=== PATIENT | male | born 1965 | race Caucasian/White ===

== ENCOUNTER 2017-12-06 15:37 | Emergency (ER) | payer MEDICAID ==
[~2017-12-06] VITALS: Ht 170.2 cm; Wt 75.0 kg
[~2017-12-06 15:37] MED LIST: ATEN-169 PO; CEPH-357 PO; ENAL20TA75 PO; HYDR-3965 PO; HYDR-569 PO; HYDR1TAB PO; MORPHINE; VAL5T PO; VERA240T PO
[2017-12-06] MEDS ORDERED: normal saline 1000ML IV soln IVB ONE (15:55)
[2017-12-06] MEDS ORDERED: MORPHINE 2MG in 2ml NS syringe IV PRN (16:05)
[2017-12-06 16:20] LABS: BASOPHILS # (AUTO) 0.1 X10'3 (0-0.2); BASOPHILS % (AUTO) 0.7 % (0-1); EOSINOPHILS # (AUTO) 0.6 X10'3 (0-0.9); EOSINOPHILS % (AUTO) 5.9 % (0-6); HEMATOCRIT 45.1 % (42.0-52.0); HEMOGLOBIN 15.9 g/dl (14.0-17.9); LYMPHOCYTES # (AUTO) 2.6 X10'3 (1.1-4.8); LYMPHOCYTES % (AUTO) 27.8 % (21-51); MEAN CORPUSCULAR HEMOGLOBIN 32.5 PG (27.0-31.0); MEAN CORPUSCULAR HGB CONC 35.2 % (33.0-36.5); MEAN CORPUSCULAR VOLUME 92.5 FL (78-98); MEAN PLATELET VOLUME 9.3 FL (7.4-10.4); MONOCYTES # (AUTO) 0.8 X10'3 (0-0.9); MONOCYTES % (AUTO) 8.1 % (2-12); NEUTROPHILS # (AUTO) 5.4 X10'3 (1.8-7.7); NEUTROPHILS % (AUTO) 57.5 % (42-75); PLATELET COUNT 203 X10'3 (140-440); RED BLOOD COUNT 4.87 X10'6 (4.70-6.10); RED CELL DISTRIBUTION WIDTH 12.1 % (11.5-14.5); WHITE BLOOD COUNT 9.4 X10'3 (4.5-11.0)
[2017-12-06 16:34] LABS: ALANINE AMINOTRANSFERASE 58 U/L (12-78); ALBUMIN 3.6 G/DL (3.4-5.0); ALBUMIN/GLOBULIN RATIO 0.9 (1.1-1.5); ALKALINE PHOSPHATASE 64 IU/L (46-116); ANION GAP 11 (8-16); ASPARTATE AMINO TRANSFERASE 39 U/L (10-37); BILIRUBIN,TOTAL 0.4 MG/DL (0.1-1.0); BLOOD UREA NITROGEN 24 MG/DL (7-18); CALCIUM 9.3 MG/DL (8.5-10.1); CHLORIDE 104 MMOL/L (99-107); GLUCOSE 141 MG/DL (70-104); POTASSIUM 3.6 MMOL/L (3.5-5.1); SODIUM 139 MMOL/L (135-145); TOTAL CARBON DIOXIDE 24.4 MMOL/L (24-32); TOTAL PROTEIN 7.8 G/DL (6.4-8.2); eGFR 63 ML/MIN
[2017-12-06] MEDS ORDERED: morphine 4 MG/ML inj SYRINge IV ONE (17:05)
[2017-12-06 17:42] VITALS: BP 154/96
== END 2017-12-06 17:45 ==
LOC: EEVIPCON 15:38 → ER 15:38
DX: K40.90 Unilateral inguinal hernia, without obstruction or gangrene, not specified as recurrent (principal); I10 Essential (primary) hypertension; G89.29 Other chronic pain; F15.10 Other stimulant abuse, uncomplicated; Z98.890 Other specified postprocedural states; Z79.899 Other long term (current) drug therapy; Z88.6 Allergy status to analgesic agent; Z56.0 Unemployment, unspecified; Z59.0 Homelessness; Z60.2 Problems related to living alone
CPT/HCPCS: 36415; 74176; 80053; 83605; 85025; 96374; 96376; 99285; J2270; J2274; J7030

== ENCOUNTER 2018-11-19 05:45 | Emergency (ER) | payer MEDICAID ==
[~2018-11-19] VITALS: Ht 170.2 cm; Wt 79.0 kg
[~2018-11-19 05:45] MED LIST changes: +HYDR-4383 PO; -HYDR-569 PO
[2018-11-19 05:47] VITALS: BP 178/120
[2018-11-19 06:27] LABS: BASOPHILS # (AUTO) 0.1 X10'3 (0-0.2); BASOPHILS % (AUTO) 0.8 % (0-1); EOSINOPHILS # (AUTO) 0.8 X10'3 (0-0.9); EOSINOPHILS % (AUTO) 6.9 % (0-6); HEMATOCRIT 40.6 % (42.0-52.0); HEMOGLOBIN 13.9 g/dl (14.0-17.9); LYMPHOCYTES # (AUTO) 3.6 X10'3 (1.1-4.8); LYMPHOCYTES % (AUTO) 31.4 % (21-51); MEAN CORPUSCULAR HEMOGLOBIN 31.4 PG (27.0-31.0); MEAN CORPUSCULAR HGB CONC 34.1 g/dL (33.0-36.5); MEAN CORPUSCULAR VOLUME 91.9 FL (78-98); MEAN PLATELET VOLUME 8.8 FL (7.4-10.4); MONOCYTES # (AUTO) 1.1 X10'3 (0-0.9); MONOCYTES % (AUTO) 9.9 % (2-12); NEUTROPHILS # (AUTO) 5.8 X10'3 (1.8-7.7); PLATELET COUNT 176 X10'3 (140-440); RED BLOOD COUNT 4.42 X10'6 (4.70-6.10); RED CELL DISTRIBUTION WIDTH 12.7 % (11.5-14.5); WHITE BLOOD COUNT 11.5 X10'3 (4.5-11.0)
[2018-11-19 06:40] LABS: ALANINE AMINOTRANSFERASE 107 U/L (12-78); ALBUMIN 3.5 G/DL (3.4-5.0); ALBUMIN/GLOBULIN RATIO 0.8 (1.1-1.5); ALKALINE PHOSPHATASE 101 IU/L (46-116); ANION GAP 14 (8-16); ASPARTATE AMINO TRANSFERASE 86 U/L (10-37); BILIRUBIN,TOTAL 0.6 MG/DL (0.1-1.0); BLOOD UREA NITROGEN 11 MG/DL (7-18); BUN/CREATININE RATIO 12.5 (5.4-32.0); CALCIUM 8.7 MG/DL (8.5-10.1); CHLORIDE 105 MMOL/L (99-107); CREATININE 0.88 MG/DL (0.60-1.10); GLUCOSE 114 MG/DL (70-104); POTASSIUM 3.8 MMOL/L (3.5-5.1); SODIUM 139 MMOL/L (135-145); TOTAL CARBON DIOXIDE 20.3 MMOL/L (24-32); TOTAL PROTEIN 7.9 G/DL (6.4-8.2); eGFR 90 ML/MIN
[2018-11-19 06:44] LABS: PROTHROMBIN TIME 10.2 SECONDS (9.0-12.0)
== END 2018-11-19 09:30 | disposition left against medical advice (07) ==
LOC: ER 05:45
DX: R10.9 Unspecified abdominal pain (principal); R11.0 Nausea; Z53.21 Procedure and treatment not carried out due to patient leaving prior to being seen by health care provider; Z88.6 Allergy status to analgesic agent; Z88.8 Allergy status to other drugs, medicaments and biological substances; Z79.899 Other long term (current) drug therapy
CPT/HCPCS: 36415; 80053; 85025; 85610

== ENCOUNTER 2022-02-10 08:11 | Emergency (ER) | payer MEDICAID ==
[~2022-02-10] VITALS: Ht 170.2 cm; Wt 84.1 kg
[~2022-02-10 08:11] MED LIST changes: +DIAZ5TAB22 PO; -VAL5T PO
[2022-02-10 09:08] LABS: BASOPHILS # (AUTO) 0.1 X10'3 (0-0.2); BASOPHILS % (AUTO) 0.6 % (0-1); EOSINOPHILS # (AUTO) 0.1 X10'3 (0-0.9); EOSINOPHILS % (AUTO) 0.7 % (0-6); HEMATOCRIT 44.3 % (42.0-52.0); HEMOGLOBIN 15.4 g/dl (14.0-17.9); LYMPHOCYTES % (AUTO) 9.8 % (21-51); MEAN CORPUSCULAR HEMOGLOBIN 32.6 PG (27.0-31.0); MEAN CORPUSCULAR HGB CONC 34.7 g/dL (33.0-36.5); MEAN CORPUSCULAR VOLUME 93.9 FL (78-98); MEAN PLATELET VOLUME 8.6 FL (7.4-10.4); MONOCYTES # (AUTO) 1.3 X10'3 (0-0.9); MONOCYTES % (AUTO) 12.6 % (2-12); NEUTROPHILS # (AUTO) 7.9 X10'3 (1.8-7.7); NEUTROPHILS % (AUTO) 76.3 % (42-75); PLATELET COUNT 205 X10'3 (140-440); RED BLOOD COUNT 4.71 X10'6 (4.70-6.10); RED CELL DISTRIBUTION WIDTH 14.4 % (11.5-14.5); WHITE BLOOD COUNT 10.3 X10'3 (4.5-11.0)
[2022-02-10 09:21] LABS: ALANINE AMINOTRANSFERASE 37 U/L (12-78); ALBUMIN 3.5 G/DL (3.4-5.0); ALBUMIN/GLOBULIN RATIO 0.8 (1.1-1.5); ALKALINE PHOSPHATASE 112 IU/L (46-116); ANION GAP 9 (8-16); ASPARTATE AMINO TRANSFERASE 38 U/L (10-37); BILIRUBIN,TOTAL 1.1 MG/DL (0.1-1.0); BLOOD UREA NITROGEN 14 MG/DL (7-18); BUN/CREATININE RATIO 9.3 (5.4-32.0); CALCIUM 8.9 MG/DL (8.5-10.1); CHLORIDE 103 MMOL/L (99-107); GLUCOSE 138 MG/DL (70-104); POTASSIUM 3.3 MMOL/L (3.5-5.1); SODIUM 137 MMOL/L (135-145); TOTAL PROTEIN 7.8 G/DL (6.4-8.2); eGFR 48 ML/MIN
[2022-02-10] MEDS ORDERED: predniSONE 20 mg tablet PO ONE (10:45)
[2022-02-10] MEDS ORDERED: dexamethasone 4mg tablet PO ONE (11:35)
[2022-02-10] MEDS ORDERED: AZIT-31 PO (11:40)
[2022-02-10] MEDS ORDERED: ALBU18HF2 INH (11:40)
[2022-02-10] MEDS ORDERED: BUDE10.26 INH (11:40)
[2022-02-10] MEDS ORDERED: DEXA4TAB67 PO (11:40)
[2022-02-10 11:49] VITALS: BP 146/72
== END 2022-02-10 11:51 | disposition home or self-care (01) ==
LOC: ER 08:12
DX: U07.1 COVID-19 (principal); I10 Essential (primary) hypertension; G89.29 Other chronic pain; F17.200 Nicotine dependence, unspecified, uncomplicated; F10.10 Alcohol abuse, uncomplicated; F15.90 Other stimulant use, unspecified, uncomplicated; Z60.2 Problems related to living alone; Z56.0 Unemployment, unspecified; Z86.19 Personal history of other infectious and parasitic diseases; Z59.00 Homelessness unspecified; Z98.890 Other specified postprocedural states; Z88.6 Allergy status to analgesic agent; Z79.899 Other long term (current) drug therapy; Y90.9 Presence of alcohol in blood, level not specified
CPT/HCPCS: 36415; 71045; 80053; 83605; 83880; 85025; 87040; 87502; 87503; 87635; 99284; C9803; J7512

== ENCOUNTER 2022-03-04 07:22 | Emergency (ER) | payer MEDICAID ==
[~2022-03-04] VITALS: Ht 170.2 cm; Wt 81.8 kg
[~2022-03-04 07:22] MED LIST changes: +ALBU18HF2 INH; +BUDE10.26 INH; +DEXA4TAB67 PO
[2022-03-04] MEDS ORDERED: magnesium 2GM in 50ml NS 50 ML IV ONE (07:50)
[2022-03-04] MEDS ORDERED: thiamine 100mg/ml 2ml inj. IV STA (07:50)
[2022-03-04] MEDS ORDERED: multivitamins, therapeutics tablet PO STA (07:50)
[2022-03-04] MEDS ORDERED: folic acid 1mg/0.2ml inj IV STA (07:50)
[2022-03-04 09:04] LABS: ALANINE AMINOTRANSFERASE 41 U/L (12-78); ALBUMIN 3.7 G/DL (3.4-5.0); ALBUMIN/GLOBULIN RATIO 0.9 (1.1-1.5); ALKALINE PHOSPHATASE 80 IU/L (46-116); ANION GAP 12 (8-16); ASPARTATE AMINO TRANSFERASE 27 U/L (10-37); BILIRUBIN,TOTAL 0.9 MG/DL (0.1-1.0); BLOOD UREA NITROGEN 19 MG/DL (7-18); BUN/CREATININE RATIO 14.5 (5.4-32.0); CALCIUM 8.3 MG/DL (8.5-10.1); CHLORIDE 110 MMOL/L (99-107); CREATININE 1.31 MG/DL (0.60-1.10); ETHANOL 0.024 GM/DL (0.0-0.010); GLUCOSE 85 MG/DL (70-104); POTASSIUM 3.8 MMOL/L (3.5-5.1); SODIUM 143 MMOL/L (135-145); TOTAL CARBON DIOXIDE 21.4 MMOL/L (24-32); TOTAL PROTEIN 7.6 G/DL (6.4-8.2); eGFR 56 ML/MIN
[2022-03-04 09:06] LABS: BASOPHILS # (AUTO) 0.1 X10'3 (0-0.2); BASOPHILS % (AUTO) 1.3 % (0-1); EOSINOPHILS # (AUTO) 0.3 X10'3 (0-0.9); HEMATOCRIT 41.7 % (42.0-52.0); HEMOGLOBIN 14.3 g/dl (14.0-17.9); LYMPHOCYTES # (AUTO) 1.6 X10'3 (1.1-4.8); LYMPHOCYTES % (AUTO) 24.2 % (21-51); MEAN CORPUSCULAR HEMOGLOBIN 32.7 PG (27.0-31.0); MEAN CORPUSCULAR HGB CONC 34.2 g/dL (33.0-36.5); MEAN CORPUSCULAR VOLUME 95.5 FL (78-98); MEAN PLATELET VOLUME 8.4 FL (7.4-10.4); MONOCYTES % (AUTO) 15.5 % (2-12); NEUTROPHILS # (AUTO) 3.6 X10'3 (1.8-7.7); PLATELET COUNT 172 X10'3 (140-440); RED BLOOD COUNT 4.36 X10'6 (4.70-6.10); RED CELL DISTRIBUTION WIDTH 14.4 % (11.5-14.5); WHITE BLOOD COUNT 6.6 X10'3 (4.5-11.0)
[2022-03-04] MEDS ORDERED: normal saline 1000ml 1,000 ML IV ONE (09:55)
--- NOTE | 2022-03-04 14:29 | NUR ---
Patient states he is ready to go home. Patient states he doesn't want to wait for results. MD informed.
[2022-03-04 14:30] VITALS: BP 170/98
--- NOTE | 2022-03-04 14:39 | NUR ---
Patient states he feels better.
--- NOTE | 2022-03-04 16:56 | NUR ---
Patient ambulated to restroom without assitance. patient states he doesn't feel steady and that his legs and feet hurt.
== END 2022-03-04 17:19 | disposition home or self-care (01) ==
LOC: ER 07:22
DX: M79.604 Pain in right leg (principal); M79.605 Pain in left leg; R26.2 Difficulty in walking, not elsewhere classified; R20.0 Anesthesia of skin; M54.50 Low back pain, unspecified; H53.8 Other visual disturbances; I10 Essential (primary) hypertension; G89.29 Other chronic pain; F15.90 Other stimulant use, unspecified, uncomplicated; Z86.19 Personal history of other infectious and parasitic diseases; Z72.89 Other problems related to lifestyle; Z56.0 Unemployment, unspecified; Z59.00 Homelessness unspecified; Z88.8 Allergy status to other drugs, medicaments and biological substances; Z79.899 Other long term (current) drug therapy; Z79.2 Long term (current) use of antibiotics
CPT/HCPCS: 70450; 70551; 72125; 72133; 72146; 72148; 80053; 80320; 82140; 82607; 85025; 96365; 96375; 99284; J3411; J3475; J3490; J7030

== ENCOUNTER 2022-03-13 17:38 | Emergency (ER) | payer MEDICAID ==
[~2022-03-13] VITALS: Ht 170.2 cm; Wt 81.8 kg
[2022-03-13 17:52] VITALS: BP 142/90
[2022-03-13] MEDS ORDERED: acetaminophen 325mg tablet PO ONE (18:55)
== END 2022-03-13 19:26 | disposition left against medical advice (07) ==
LOC: ER 17:38
DX: S01.511A Laceration without foreign body of lip, initial encounter (principal); M54.2 Cervicalgia; R68.84 Jaw pain; I10 Essential (primary) hypertension; G89.29 Other chronic pain; M54.9 Dorsalgia, unspecified; F15.10 Other stimulant abuse, uncomplicated; Z88.6 Allergy status to analgesic agent; Z79.899 Other long term (current) drug therapy; Z79.2 Long term (current) use of antibiotics; Y04.8XXA Assault by other bodily force, initial encounter; Y93.89 Activity, other specified; Y92.89 Other specified places as the place of occurrence of the external cause; Y99.8 Other external cause status
CPT/HCPCS: 99281

== ENCOUNTER 2022-10-02 15:36 | Emergency (ER) | payer MEDICAID ==
[~2022-10-02] VITALS: Ht 170.2 cm; Wt 77.3 kg
[2022-10-02 15:58] VITALS: BP 118/87
== END 2022-10-02 17:27 | disposition home or self-care (01) ==
LOC: ER 15:37
DX: G89.28 Other chronic postprocedural pain (principal); M43.22 Fusion of spine, cervical region; I10 Essential (primary) hypertension; M54.50 Low back pain, unspecified; F15.20 Other stimulant dependence, uncomplicated; Z88.6 Allergy status to analgesic agent; Z59.00 Homelessness unspecified; Z56.0 Unemployment, unspecified
CPT/HCPCS: 99283

== ENCOUNTER 2023-03-20 00:24 | Emergency (ER) | payer MEDICAID ==
[~2023-03-20] VITALS: Ht 170.2 cm; Wt 77.3 kg
[~2023-03-20 00:24] MED LIST changes: +ALBU90AE INH; +AZIT500T9 PO; +BECL7.3A INH
[2023-03-20 00:26] VITALS: BP 157/99; PULSE 100; RESP 20; TEMP 98.3; O2SAT 96
== END 2023-03-20 03:18 | disposition left against medical advice (07) ==
LOC: ER 00:25
DX: R22.1 Localized swelling, mass and lump, neck (principal); Z53.21 Procedure and treatment not carried out due to patient leaving prior to being seen by health care provider
CPT/HCPCS: 99281

== ENCOUNTER 2023-03-26 10:58 | Emergency (ER) | payer MEDICAID ==
[~2023-03-26] VITALS: Ht 170.2 cm; Wt 79.5 kg
[2023-03-26 10:59] VITALS: BP 186/123; PULSE 114; RESP 20; TEMP 97.8; O2SAT 97
== END 2023-03-26 12:22 | disposition left against medical advice (07) ==
LOC: ER 10:58
DX: S31.805A Open bite of unspecified buttock, initial encounter (principal); Z53.21 Procedure and treatment not carried out due to patient leaving prior to being seen by health care provider
CPT/HCPCS: 99281

== ENCOUNTER 2023-03-28 08:39 | Emergency (ER) | payer MEDICAID ==
[~2023-03-28] VITALS: Ht 170.2 cm; Wt 79.5 kg
[2023-03-28 08:46] VITALS: BP 159/108; PULSE 119; RESP 19; TEMP 98.1; O2SAT 96
--- NOTE | 2023-03-28 08:46 | NUR ---
pt went to the toilet before coming to triage.
[2023-03-28] MEDS ORDERED: NAPR-56 PO (09:55)
[2023-03-28] MEDS ORDERED: CEPH-585 PO (09:55)
[2023-03-28] MEDS ORDERED: SULF1TAB49 PO (09:55)
== END 2023-03-28 10:26 | disposition home or self-care (01) ==
LOC: ER 08:39
DX: L02.31 Cutaneous abscess of buttock (principal); J45.909 Unspecified asthma, uncomplicated; I10 Essential (primary) hypertension; G89.29 Other chronic pain; M54.9 Dorsalgia, unspecified; F15.10 Other stimulant abuse, uncomplicated; Z59.00 Homelessness unspecified; Z56.0 Unemployment, unspecified; Z88.6 Allergy status to analgesic agent; Z88.8 Allergy status to other drugs, medicaments and biological substances; Z79.899 Other long term (current) drug therapy
CPT/HCPCS: 99283

== ENCOUNTER 2023-04-19 19:38 | Emergency (ER) | payer MEDICAID ==
[~2023-04-19] VITALS: Ht 170.2 cm; Wt 75.0 kg
[~2023-04-19 19:38] MED LIST changes: +CEPH-585 PO; +NAPR-56 PO
[2023-04-19 19:53] VITALS: BP 144/83; PULSE 102; RESP 18; TEMP 98.9; O2SAT 94
== END 2023-04-20 00:22 | disposition left against medical advice (07) ==
LOC: ER 19:38
DX: S30.91XA Unspecified superficial injury of lower back and pelvis, initial encounter (principal); S50.902A Unspecified superficial injury of left elbow, initial encounter; S50.911A Unspecified superficial injury of right forearm, initial encounter; Z53.21 Procedure and treatment not carried out due to patient leaving prior to being seen by health care provider; X58.XXXA Exposure to other specified factors, initial encounter; Y93.89 Activity, other specified; Y92.89 Other specified places as the place of occurrence of the external cause; Y99.8 Other external cause status
CPT/HCPCS: 99281

== ENCOUNTER → 2023-04-20 | Emergency (ER) | payer MEDICAID ==
[~2023-04-20] VITALS: Ht 170.2 cm; Wt 77.3 kg
[2023-04-20 10:28] VITALS: BP 121/81; PULSE 101; RESP 16; TEMP 98.8; O2SAT 96
[2023-04-20 10:55] LABS: BASOPHILS # (AUTO) 0.1 X10'3 (0-0.2); BASOPHILS % (AUTO) 1.8 % (0-1); EOSINOPHILS # (AUTO) 0.2 X10'3 (0-0.9); EOSINOPHILS % (AUTO) 2.7 % (0-6); HEMATOCRIT 41.8 % (42.0-52.0); HEMOGLOBIN 14.4 g/dl (14.0-17.9); LYMPHOCYTES # (AUTO) 1.7 X10'3 (1.1-4.8); LYMPHOCYTES % (AUTO) 25.6 % (21-51); MEAN CORPUSCULAR HEMOGLOBIN 35.1 PG (27.0-31.0); MEAN CORPUSCULAR HGB CONC 34.4 g/dL (33.0-36.5); MEAN CORPUSCULAR VOLUME 101.9 FL (78-98); MEAN PLATELET VOLUME 8.4 FL (7.4-10.4); MONOCYTES # (AUTO) 0.8 X10'3 (0-0.9); MONOCYTES % (AUTO) 12.2 % (2-12); NEUTROPHILS # (AUTO) 3.7 X10'3 (1.8-7.7); NEUTROPHILS % (AUTO) 57.7 % (42-75); PLATELET COUNT 184 X10'3 (140-440); RED CELL DISTRIBUTION WIDTH 14.1 % (11.5-14.5); WHITE BLOOD COUNT 6.5 X10'3 (4.5-11.0)
[2023-04-20 10:58] LABS: ALANINE AMINOTRANSFERASE 181 U/L (12-78); ALBUMIN 3.3 G/DL (3.4-5.0); ALBUMIN/GLOBULIN RATIO 0.7 (1.1-1.5); ALKALINE PHOSPHATASE 233 IU/L (46-116); ANION GAP 13 (8-16); ASPARTATE AMINO TRANSFERASE 318 U/L (10-37); BILIRUBIN,TOTAL 0.8 MG/DL (0.1-1.0); BLOOD UREA NITROGEN 8 MG/DL (7-18); BUN/CREATININE RATIO 8.1 (10.0-20.0); CALCIUM 8.8 MG/DL (8.5-10.1); CHLORIDE 102 MMOL/L (99-107); CREATININE 0.99 MG/DL (0.60-1.10); GLUCOSE 157 MG/DL (70-104); POTASSIUM 3.3 MMOL/L (3.5-5.1); SODIUM 139 MMOL/L (135-145); TOTAL CARBON DIOXIDE 24.5 MMOL/L (24-32); eCRCL 75 ML/MIN; eGFR 77 ML/MIN
[2023-04-20 11:07] LABS: PRO BRAIN NATRIURETIC PEPTIDE 197 PG/ML (0-125)
== END | disposition left against medical advice (07) ==
LOC: ER 09:58
DX: I10 Essential (primary) hypertension (principal); J45.909 Unspecified asthma, uncomplicated; G89.29 Other chronic pain; F15.90 Other stimulant use, unspecified, uncomplicated; Z56.0 Unemployment, unspecified; Z59.00 Homelessness unspecified; Z72.89 Other problems related to lifestyle; Z88.5 Allergy status to narcotic agent; Z88.8 Allergy status to other drugs, medicaments and biological substances; Z79.899 Other long term (current) drug therapy
CPT/HCPCS: 36415; 71045; 80053; 83880; 84484; 85025; 93005; 99281; 99285

== ENCOUNTER 2023-05-24 15:21 | Emergency (ER) | payer MEDICAID ==
[~2023-05-24] VITALS: Ht 170.2 cm; Wt 74.0 kg
[~2023-05-24 15:21] MED LIST changes: -NAPR-56 PO
[2023-05-24 15:33] VITALS: BP 144/104; PULSE 108; RESP 17; TEMP 98.5; O2SAT 97
[2023-05-24 15:49] LABS: BASOPHILS # (AUTO) 0.1 X10'3 (0-0.2); BASOPHILS % (AUTO) 1.1 % (0-1); EOSINOPHILS # (AUTO) 0.1 X10'3 (0-0.9); HEMATOCRIT 42.3 % (42.0-52.0); HEMOGLOBIN 14.4 g/dl (14.0-17.9); LYMPHOCYTES % (AUTO) 26.1 % (21-51); MEAN CORPUSCULAR HEMOGLOBIN 35.2 PG (27.0-31.0); MEAN CORPUSCULAR VOLUME 103.8 FL (78-98); MEAN PLATELET VOLUME 9.5 FL (7.4-10.4); MONOCYTES # (AUTO) 0.8 X10'3 (0-0.9); MONOCYTES % (AUTO) 10.3 % (2-12); NEUTROPHILS # (AUTO) 4.6 X10'3 (1.8-7.7); NEUTROPHILS % (AUTO) 61.5 % (42-75); PLATELET COUNT 180 X10'3 (140-440); RED BLOOD COUNT 4.07 X10'6 (4.70-6.10); RED CELL DISTRIBUTION WIDTH 14.2 % (11.5-14.5); WHITE BLOOD COUNT 7.5 X10'3 (4.5-11.0)
[2023-05-24 16:24] LABS: ALANINE AMINOTRANSFERASE 161 U/L (12-78); ALBUMIN/GLOBULIN RATIO 0.6 (1.1-1.5); ALKALINE PHOSPHATASE 286 IU/L (46-116); ANION GAP 11 (8-16); ASPARTATE AMINO TRANSFERASE 395 U/L (10-37); BLOOD UREA NITROGEN 6 MG/DL (7-18); BUN/CREATININE RATIO 6.5 (10.0-20.0); CALCIUM 8.6 MG/DL (8.5-10.1); CHLORIDE 99 MMOL/L (99-107); CREATININE 0.93 MG/DL (0.60-1.10); GLUCOSE 115 MG/DL (70-104); POTASSIUM 3.1 MMOL/L (3.5-5.1); SODIUM 137 MMOL/L (135-145); TOTAL CARBON DIOXIDE 27.1 MMOL/L (24-32); TOTAL PROTEIN 8.1 G/DL (6.4-8.2); eCRCL 80 ML/MIN; eGFR 83 ML/MIN
[2023-05-24 16:32] LABS: PRO BRAIN NATRIURETIC PEPTIDE 186 PG/ML (0-125)
== END 2023-05-24 21:11 | disposition left against medical advice (07) ==
LOC: ER 15:22
DX: R07.89 Other chest pain (principal); Z53.21 Procedure and treatment not carried out due to patient leaving prior to being seen by health care provider
CPT/HCPCS: 36415; 80053; 83880; 84484; 85025; 93005; 99281

== ENCOUNTER 2023-11-08 13:21 | Inpatient (IN) | payer MEDICAID ==
[~2023-11-08] VITALS: Ht 170.2 cm; Wt 87.0 kg
[2023-11-08 13:50] LABS: BASOPHILS # (AUTO) 0.1 X10'3 (0-0.2); EOSINOPHILS % (AUTO) 0.2 % (0-6); HEMATOCRIT 46.9 % (42.0-52.0); HEMOGLOBIN 16.2 g/dl (14.0-17.9); LYMPHOCYTES # (AUTO) 2.2 X10'3 (1.1-4.8); LYMPHOCYTES % (AUTO) 30.6 % (21-51); MEAN CORPUSCULAR HEMOGLOBIN 32.1 PG (27.0-31.0); MEAN CORPUSCULAR HGB CONC 34.7 g/dL (33.0-36.5); MEAN CORPUSCULAR VOLUME 92.7 FL (78-98); MEAN PLATELET VOLUME 8.4 FL (7.4-10.4); MONOCYTES # (AUTO) 1.1 X10'3 (0-0.9); MONOCYTES % (AUTO) 15.9 % (2-12); NEUTROPHILS # (AUTO) 3.7 X10'3 (1.8-7.7); NEUTROPHILS % (AUTO) 52.3 % (42-75); PLATELET COUNT 205 X10'3 (140-440); RED BLOOD COUNT 5.05 X10'6 (4.70-6.10); RED CELL DISTRIBUTION WIDTH 14.8 % (11.5-14.5); WHITE BLOOD COUNT 7.1 X10'3 (4.5-11.0)
[2023-11-08] MEDS: diltiazem 5mg/ml 5ml inj. IV ONE (13:53)
[2023-11-08] MEDS: diltiazem 5mg/ml 5ml inj. IV STA (14:06)
[2023-11-08 14:11] LABS: ALBUMIN 3.6 G/DL (3.4-5.0); ANION GAP 20 (8-16); BLOOD UREA NITROGEN 13 MG/DL (7-18); BUN/CREATININE RATIO 11.3 (10.0-20.0); CALCIUM 8.4 MG/DL (8.5-10.1); CHLORIDE 104 MMOL/L (99-107); CREATININE 1.15 MG/DL (0.60-1.10); GLUCOSE 155 MG/DL (70-104); POTASSIUM 3.3 MMOL/L (3.5-5.1); PRO BRAIN NATRIURETIC PEPTIDE 240 PG/ML (0-125); SODIUM 140 MMOL/L (135-145); TOTAL CARBON DIOXIDE 16.1 MMOL/L (24-32); eCRCL 64 ML/MIN; eGFR 65 ML/MIN
[2023-11-08 14:18] LABS: PLATELET ESTIMATE NORMAL; TOTAL CELLS COUNTED 100
[2023-11-08] MEDS: LORazepam 2 mg/ml vial IV ONE ×2 (14:55→16:49)
[2023-11-08] MEDS: ondansetron/PF 4mg/2ml inj IV ONE (14:57)
[2023-11-08] MEDS: morphine 4 MG/ML inj SYRINge IV ONE (15:00)
[2023-11-08] MEDS: pantoprazole 40 MG vial IV ONE (15:04)
[2023-11-08] MEDS: metoprolol tartrate 1mg/ml inj IV ONE (15:12)
[2023-11-08] MEDS: methylPREDNISolone sod succ 125mg/2ml vial IV ONE (15:12)
[2023-11-08 15:20] LABS: APTT 30 SECONDS (22-32); D-DIMER 0.39 MG/L FEU (0-0.50); INR 1.1 INR
[2023-11-08] MEDS: normal saline 1000ml 1,000 ML IV ONE ×2 (15:50→16:49)
[2023-11-08 15:56] LABS: ALANINE AMINOTRANSFERASE 50 U/L (12-78); ALBUMIN 3.6 G/DL (3.4-5.0); ALBUMIN/GLOBULIN RATIO 0.8 (1.1-1.5); ALKALINE PHOSPHATASE 103 IU/L (46-116); ASPARTATE AMINO TRANSFERASE 66 U/L (10-37); BILIRUBIN,DIRECT 0.2 MG/DL (0-0.3); BILIRUBIN,TOTAL 0.5 MG/DL (0.1-1.0); ETHANOL 145 MG/DL (<10); TOTAL PROTEIN 7.9 G/DL (6.4-8.2)
[2023-11-08] MEDS: potassium Cl 20 mEq SR tablet PO STA (16:48)
[2023-11-08] MEDS: thiamine 100mg/ml 2ml inj. IV ONE (16:49)
[2023-11-08] MEDS: piperacillin/tazo 4.5gm/100ml 100 ML IV ONE (16:49)
[2023-11-08] MEDS: folic acid 1mg/0.2ml inj IV ONE (16:50)
[2023-11-08 17:35] LABS: MAGNESIUM 1.8 MG/DL (1.5-2.4)
[2023-11-08 18:00] LABS: URINE AMPHETAMINE SCREEN POSITIVE (Neg); URINE BARBITUATE SCREEN NEGATIVE (Neg); URINE BENZODIAZEPINES SCREEN NEGATIVE (Neg); URINE CANNABINOID SCREEN NEGATIVE (Neg); URINE COCAINE SCREEN NEGATIVE (Neg); URINE METHADONE SCREEN NEGATIVE (Neg); URINE OPIATE SCREEN POSITIVE (Neg); URINE PHENCYCLIDINE SCREEN NEGATIVE (Neg)
[2023-11-08] MEDS: pantoprazole 40MG/NS 100ML BAG 100 ML IV SCH (19:54)
[2023-11-08] MEDS ORDERED: acetaminophen 325mg tablet PO PRN (20:20)
[2023-11-08] MEDS: normal saline 1000ml 1,000 ML IV SCH (20:20)
[2023-11-08] MEDS ORDERED: haloperidol 5mg tablet PO PRN (20:20)
[2023-11-08] MEDS ORDERED: potassium Cl 40MEQ/1/2NS 520ml 520 ML IV PRN (20:20)
[2023-11-08] MEDS ORDERED: haloperidol lactate 5mg/ml inj IM PRN (20:20)
[2023-11-08] MEDS ORDERED: ondansetron/PF 4mg/2ml inj IV PRN (20:20)
[2023-11-08] MEDS ORDERED: mag hydrox/Alum hydrox/simeth 30ml oral suspension PO PRN (20:20)
[2023-11-08] MEDS ORDERED: potassium Cl 20 mEq SR tablet PO PRN ×2 (20:20)
[2023-11-08] MEDS ORDERED: magnesium 2GM in 50ml NS 50 ML IV PRN (20:20)
[2023-11-08] MEDS ORDERED: magnesium hydroxide 30ml (MOM) UD suspension PO PRN (20:20)
[2023-11-08] MEDS ORDERED: magnesium Cl slow-release 64mg tablet PO PRN (20:20)
[2023-11-08] MEDS ORDERED: magnesium 4gm in 100ml NS 100 ML IV PRN (20:20)
[2023-11-08] MEDS ORDERED: dextrose 50%-water 50ml dispensing syringe IV PRN (20:20)
[2023-11-08] MEDS: PERFLUTREN PROTEIN-A MICROSPHR (Optison) 0.22 MG/ML 3ML VIAL IV ONE (20:47)
[2023-11-08 21:49] VITALS: PULSE 86; RESP 18; O2SAT 98
[2023-11-08] MEDS ORDERED: HYDR50TA4 PO (22:06)
[2023-11-08] MEDS ORDERED: AMLO2.5T2 PO (22:06)
[2023-11-08] MEDS ORDERED: LOSA100T58 PO (22:06)
[2023-11-08] MEDS: labetalol 20mg/4ml (5mg/ml) syringe IV ONE (22:23)
[2023-11-08 23:26] VITALS: RESP 16; O2SAT 92
[2023-11-09] VITALS (12 sets, daily range): BP systolic 135–171; BP diastolic 80–98; PULSE 67–100; RESP 15–20; TEMP 97.5–98.6; O2SAT 92–98
[2023-11-09] MEDS: albuterol 2.5 MG/3 ML nebule NEB PRN (00:01)
[2023-11-09] MEDS: morphine 2 MG/ML inj. syringe IV PRN (00:47)
[2023-11-09] MEDS: docusate sod 100mg capsule PO SCH (08:00)
[2023-11-09] MEDS: K and/or MAG REPLACEMENT MC SCH (08:00)
[2023-11-09] MEDS: atenolol 50mg tablet PO SCH (08:00)
[2023-11-09] MEDS: cyanocobalamin 500mcg tablet PO SCH (08:00)
[2023-11-09] MEDS: verapamil SR 120mg (sust. release) tab PO SCH (08:00)
[2023-11-09 08:09] LABS: BASOPHILS % (AUTO) 0.2 % (0-1); EOSINOPHILS % (AUTO) 0 % (0-6); HEMOGLOBIN 13.6 g/dl (14.0-17.9); LYMPHOCYTES # (AUTO) 0.6 X10'3 (1.1-4.8); LYMPHOCYTES % (AUTO) 19.7 % (21-51); MEAN CORPUSCULAR HEMOGLOBIN 31.7 PG (27.0-31.0); MEAN CORPUSCULAR HGB CONC 34.1 g/dL (33.0-36.5); MEAN PLATELET VOLUME 8.7 FL (7.4-10.4); MONOCYTES # (AUTO) 0.3 X10'3 (0-0.9); MONOCYTES % (AUTO) 8.9 % (2-12); NEUTROPHILS # (AUTO) 2.2 X10'3 (1.8-7.7); NEUTROPHILS % (AUTO) 71.2 % (42-75); PLATELET COUNT 168 X10'3 (140-440); RED CELL DISTRIBUTION WIDTH 14.5 % (11.5-14.5); WHITE BLOOD COUNT 3.1 X10'3 (4.5-11.0)
[2023-11-09] MEDS: LORazepam 2 mg/ml vial IV PRN (08:32)
[2023-11-09 08:41] LABS: ALANINE AMINOTRANSFERASE 41 U/L (12-78); ALBUMIN 3.1 G/DL (3.4-5.0); ALBUMIN/GLOBULIN RATIO 0.8 (1.1-1.5); ALKALINE PHOSPHATASE 88 IU/L (46-116); ANION GAP 11 (8-16); ASPARTATE AMINO TRANSFERASE 41 U/L (10-37); BILIRUBIN,TOTAL 0.6 MG/DL (0.1-1.0); BLOOD UREA NITROGEN 18 MG/DL (7-18); BUN/CREATININE RATIO 15.3 (10.0-20.0); CALCIUM 8.2 MG/DL (8.5-10.1); CHLORIDE 108 MMOL/L (99-107); CHOL/HDL RATIO 1.5 (0.00-4.99); CHOLESTEROL 140 MG/DL (0-200); CREATININE 1.18 MG/DL (0.60-1.10); GLUCOSE 131 MG/DL (70-104); HDL CHOLESTEROL 91 MG/DL (35-60); LDL CHOLESTEROL 38 MG/DL (50-100); SODIUM 141 MMOL/L (135-145); TOTAL CARBON DIOXIDE 22.5 MMOL/L (24-32); TOTAL PROTEIN 7.1 G/DL (6.4-8.2); TRIGLYCERIDES 46 MG/DL (20-135); eCRCL 62 ML/MIN; eGFR 63 ML/MIN
[2023-11-09] MEDS: folic acid 1mg/0.2ml inj IV SCH (08:47)
[2023-11-09] MEDS: thiamine 100mg/ml 2ml inj. IV SCH (08:58)
[2023-11-09] MEDS: budesonide 0.5mg/2ml UD nebule IH SCH (09:11)
[2023-11-09 09:28] LABS: HEMOGLOBIN A1C 5.3 % (4.5-6.2)
[2023-11-09] MEDS: HYDROcodone/acetaminophen 5mg/325mg tablet PO PRN (13:38)
[2023-11-10] VITALS (10 sets, daily range): BP systolic 135–178; BP diastolic 74–95; PULSE 72–80; RESP 14–19; TEMP 97.1–98.8; O2SAT 94–97
[2023-11-10] MEDS: morphine 2 MG/ML inj. syringe IV PRN (06:10)
[2023-11-10 07:24] LABS: BASOPHILS % (AUTO) 0.7 % (0-1); EOSINOPHILS % (AUTO) 0.1 % (0-6); HEMATOCRIT 36.4 % (42.0-52.0); HEMOGLOBIN 12.5 g/dl (14.0-17.9); LYMPHOCYTES # (AUTO) 1.9 X10'3 (1.1-4.8); LYMPHOCYTES % (AUTO) 29.7 % (21-51); MEAN CORPUSCULAR HEMOGLOBIN 32.4 PG (27.0-31.0); MEAN CORPUSCULAR HGB CONC 34.4 g/dL (33.0-36.5); MEAN CORPUSCULAR VOLUME 94.2 FL (78-98); MEAN PLATELET VOLUME 8.7 FL (7.4-10.4); MONOCYTES # (AUTO) 0.4 X10'3 (0-0.9); MONOCYTES % (AUTO) 6.5 % (2-12); NEUTROPHILS # (AUTO) 4.1 X10'3 (1.8-7.7); PLATELET COUNT 113 X10'3 (140-440); RED BLOOD COUNT 3.86 X10'6 (4.70-6.10); RED CELL DISTRIBUTION WIDTH 14.8 % (11.5-14.5); WHITE BLOOD COUNT 6.5 X10'3 (4.5-11.0)
[2023-11-10 07:40] LABS: ALANINE AMINOTRANSFERASE 31 U/L (12-78); ALBUMIN 2.7 G/DL (3.4-5.0); ALBUMIN/GLOBULIN RATIO 0.8 (1.1-1.5); ALKALINE PHOSPHATASE 78 IU/L (46-116); ANION GAP 9 (8-16); ASPARTATE AMINO TRANSFERASE 35 U/L (10-37); BILIRUBIN,TOTAL 0.6 MG/DL (0.1-1.0); BLOOD UREA NITROGEN 18 MG/DL (7-18); BUN/CREATININE RATIO 17.3 (10.0-20.0); CALCIUM 7.7 MG/DL (8.5-10.1); CHLORIDE 106 MMOL/L (99-107); CREATININE 1.04 MG/DL (0.60-1.10); GLUCOSE 93 MG/DL (70-104); POTASSIUM 3.8 MMOL/L (3.5-5.1); SODIUM 139 MMOL/L (135-145); TOTAL CARBON DIOXIDE 24.2 MMOL/L (24-32); TOTAL PROTEIN 6.3 G/DL (6.4-8.2); eCRCL 71 ML/MIN; eGFR 73 ML/MIN
[2023-11-10] MEDS: methylPREDNISolone sod succ/PF 40mg inj. IV SCH (11:52)
[2023-11-10] MEDS: pantoprazole 40mg Tablet.DR PO SCH (19:38)
[2023-11-10] MEDS: guaiFENesin ER 600mg tablet PO SCH (19:39)
[2023-11-10] MEDS ORDERED: LORazepam 2 mg/ml vial IV PRN (20:20)
[2023-11-11] VITALS (12 sets, daily range): BP systolic 106–206; BP diastolic 69–107; PULSE 59–91; RESP 16–20; TEMP 97.4–98.7; O2SAT 95–98
[2023-11-11 05:43] LABS: BASOPHILS % (AUTO) 0.3 % (0-1); EOSINOPHILS % (AUTO) 0 % (0-6); HEMATOCRIT 40.6 % (42.0-52.0); HEMOGLOBIN 13.9 g/dl (14.0-17.9); LYMPHOCYTES # (AUTO) 0.7 X10'3 (1.1-4.8); LYMPHOCYTES % (AUTO) 11.3 % (21-51); MEAN CORPUSCULAR HGB CONC 34.2 g/dL (33.0-36.5); MEAN CORPUSCULAR VOLUME 93.6 FL (78-98); MONOCYTES # (AUTO) 0.1 X10'3 (0-0.9); MONOCYTES % (AUTO) 2.5 % (2-12); NEUTROPHILS # (AUTO) 5.1 X10'3 (1.8-7.7); NEUTROPHILS % (AUTO) 85.9 % (42-75); PLATELET COUNT 119 X10'3 (140-440); RED BLOOD COUNT 4.34 X10'6 (4.70-6.10); RED CELL DISTRIBUTION WIDTH 14.6 % (11.5-14.5); WHITE BLOOD COUNT 5.9 X10'3 (4.5-11.0)
[2023-11-11 06:00] LABS: ALANINE AMINOTRANSFERASE 37 U/L (12-78); ALBUMIN/GLOBULIN RATIO 0.7 (1.1-1.5); ALKALINE PHOSPHATASE 78 IU/L (46-116); ANION GAP 9 (8-16); ASPARTATE AMINO TRANSFERASE 24 U/L (10-37); BILIRUBIN,TOTAL 0.6 MG/DL (0.1-1.0); BLOOD UREA NITROGEN 17 MG/DL (7-18); BUN/CREATININE RATIO 18.1 (10.0-20.0); CALCIUM 8.8 MG/DL (8.5-10.1); CHLORIDE 104 MMOL/L (99-107); CREATININE 0.94 MG/DL (0.60-1.10); GLUCOSE 154 MG/DL (70-104); MAGNESIUM 2.2 MG/DL (1.5-2.4); POTASSIUM 4.1 MMOL/L (3.5-5.1); SODIUM 138 MMOL/L (135-145); TOTAL CARBON DIOXIDE 25.5 MMOL/L (24-32); TOTAL PROTEIN 7.1 G/DL (6.4-8.2); eCRCL 78 ML/MIN; eGFR 82 ML/MIN
[2023-11-11] MEDS: diltiazem CD 120mg capsule (once-daily) PO ONE (10:05)
[2023-11-11] MEDS: LORazepam 1 MG tablet PO PRN (23:00)
[2023-11-12 02:00] VITALS: BP 157/91; PULSE 72; RESP 20; TEMP 97.3; O2SAT 98
[2023-11-12 06:00] VITALS: BP 166/85; PULSE 59; RESP 20; TEMP 97.4; O2SAT 95
[2023-11-12 06:19] LABS: BASOPHILS % (AUTO) 0 % (0-1); EOSINOPHILS % (AUTO) 0 % (0-6); HEMATOCRIT 38.8 % (42.0-52.0); HEMOGLOBIN 13.5 g/dl (14.0-17.9); LYMPHOCYTES # (AUTO) 0.9 X10'3 (1.1-4.8); LYMPHOCYTES % (AUTO) 9.1 % (21-51); MEAN CORPUSCULAR HEMOGLOBIN 32.5 PG (27.0-31.0); MEAN CORPUSCULAR HGB CONC 34.9 g/dL (33.0-36.5); MEAN CORPUSCULAR VOLUME 93.3 FL (78-98); MEAN PLATELET VOLUME 9.4 FL (7.4-10.4); MONOCYTES # (AUTO) 0.3 X10'3 (0-0.9); MONOCYTES % (AUTO) 3.1 % (2-12); NEUTROPHILS # (AUTO) 8.5 X10'3 (1.8-7.7); NEUTROPHILS % (AUTO) 87.8 % (42-75); PLATELET COUNT 125 X10'3 (140-440); RED BLOOD COUNT 4.16 X10'6 (4.70-6.10); RED CELL DISTRIBUTION WIDTH 14.6 % (11.5-14.5); WHITE BLOOD COUNT 9.7 X10'3 (4.5-11.0)
[2023-11-12 06:42] LABS: ALANINE AMINOTRANSFERASE 33 U/L (12-78); ALBUMIN 2.8 G/DL (3.4-5.0); ALBUMIN/GLOBULIN RATIO 0.7 (1.1-1.5); ALKALINE PHOSPHATASE 64 IU/L (46-116); ANION GAP 5 (8-16); ASPARTATE AMINO TRANSFERASE 18 U/L (10-37); BILIRUBIN,TOTAL 0.4 MG/DL (0.1-1.0); BLOOD UREA NITROGEN 22 MG/DL (7-18); CALCIUM 8.6 MG/DL (8.5-10.1); CHLORIDE 106 MMOL/L (99-107); GLUCOSE 161 MG/DL (70-104); MAGNESIUM 2.4 MG/DL (1.5-2.4); POTASSIUM 4.2 MMOL/L (3.5-5.1); SODIUM 139 MMOL/L (135-145); TOTAL PROTEIN 6.6 G/DL (6.4-8.2); eCRCL 67 ML/MIN; eGFR 68 ML/MIN
[2023-11-12 08:00] VITALS: BP_SYST 120; RESP 18; O2SAT 93
[2023-11-12 08:52] LABS: HBSAG SCREEN Negative (Negative); HEP B CORE AB, IGM Negative (Negative); HEP B CORE AB, TOT Positive (Negative)
[2023-11-12] MEDS ORDERED: PANT-47 PO (09:40)
[2023-11-12] MEDS ORDERED: PRED10TA23 PO (09:40)
[2023-11-12] MEDS ORDERED: ALBU2.5V7 INH (09:46)
[2023-11-12 10:01] VITALS: PULSE 71; RESP 18; O2SAT 95
[2023-11-12 10:15] VITALS: PULSE 85; RESP 16
[2023-11-12] MEDS ORDERED: LORazepam 2 mg/ml vial IV PRN (20:20)
[2023-11-12] MEDS ORDERED: LORazepam 1 MG tablet PO PRN (20:20)
[2023-11-13] MEDS ORDERED: thiamine 100mg tablet PO SCH (08:00)
[2023-11-13] MEDS ORDERED: folic acid 1mg tablet PO SCH (08:00)
== END 2023-11-12 11:30 | disposition home or self-care (01) | DRG 253 ==
LOC: ER 13:21 → ED HOLD 20:30 → PCU 3S 23:10
PROVIDERS: ADMIT Internal Medicine; ATTEND Internal Medicine
DX: K92.2 Gastrointestinal hemorrhage, unspecified (principal); E87.20 Acidosis, unspecified; E87.6 Hypokalemia; G62.9 Polyneuropathy, unspecified; I48.91 Unspecified atrial fibrillation; F10.10 Alcohol abuse, uncomplicated; F15.11 Other stimulant abuse, in remission; G89.29 Other chronic pain; Z20.822 Contact with and (suspected) exposure to COVID-19; I10 Essential (primary) hypertension; J45.909 Unspecified asthma, uncomplicated; M54.9 Dorsalgia, unspecified; Z88.6 Allergy status to analgesic agent; Z88.8 Allergy status to other drugs, medicaments and biological substances; Z79.899 Other long term (current) drug therapy; Z59.00 Homelessness unspecified; Z56.0 Unemployment, unspecified
CPT/HCPCS: 36415; 71045; 74176; 76700; 80048; 80053; 80061; 80076; 80305; 80320; 83036; 83605; 83690; 83735; 83880; 84145; 84443; 84484; 85007; 85025; 85379; 85610; 85730; 86704; 86705; 86885; 86900; 86901; 87040; 87081; 87340; 87502; 87503; 87811; 93005; 93306; 94640; 94760; 97161; 97530; 99291; A6258; C9113; G0378; J2060; J2270; J2405; J2543; J2920; J2930; J3411; J3490; J7030

== ENCOUNTER 2025-03-17 09:12 | Outpatient (CLI) | payer MEDICAID ==
[~2025-03-17 09:12] MED LIST changes: -ALBU18HF2 INH; +ALBU2.5V7 INH; -ALBU90AE INH; +AMLO2.5T2 PO; -ATEN-169 PO; -AZIT500T9 PO; -BECL7.3A INH; -BUDE10.26 INH; -CEPH-357 PO; -CEPH-585 PO; -DEXA4TAB67 PO; -DIAZ5TAB22 PO; -ENAL20TA75 PO; -HYDR-4383 PO; -HYDR1TAB PO; +HYDR50TA4 PO; +LOSA100T58 PO; -MORPHINE; +PANT-47 PO; -VERA240T PO
--- NOTE | 2025-03-17 11:14 | RADIOLOGY REPORT ---
EXAM: DI KNEE, COMP 4 VW MIN CLINICAL INDICATION: CHRONIC LEFT KNEE PAIN TECHNIQUE: DI KNEE, COMP 4 VW MIN Comparison: None FINDINGS/IMPRESSION: There is no evidence of acute fracture or dislocation. Moderate left knee osteoarthritis. The alignment is anatomical. There is no radiopaque foreign body.
== END 2025-03-17 23:59 | disposition home or self-care (01) ==
LOC: RAD 09:12
PROVIDERS: ATTEND Family Medicine
DX: M17.12 Unilateral primary osteoarthritis, left knee (principal); M25.562 Pain in left knee
CPT/HCPCS: 73564

== ENCOUNTER 2025-05-26 09:04 | Outpatient (CLI) | payer MEDICAID ==
--- NOTE | 2025-05-26 18:50 | RADIOLOGY REPORT ---
EXAM: MR MRI LOWER EXTREMITY LEFT HISTORY: UNILATERAL PRIMARY OSTEOARTHRITIS, LEFT KNEE COMPARISON: None TECHNIQUE: Multiplanar, multisequence imaging of the left knee was performed without contrast FINDINGS: MEDIAL COMPARTMENT: Intact medial meniscus. Trace possible subchondral edema of the mesial aspect of the medial femoral condyle LATERAL COMPARTMENT: Intact lateral meniscus. No focal chondrosis or subchondral edema. PATELLOFEMORAL COMPARTMENT: No focal chondrosis or subchondral edema. CRUCIATE LIGAMENTS: Intermediate to high signal intensity along the proximal anterior cruciate ligament with thickening on sagittal plane compatible with mucoid degeneration versus sequelae of prior injury. Posterior cruciate ligament is intact. Insertional cystic change along the intercondylar notch MEDIAL SUPPORTING STRUCTURES: Intact medial collateral ligament. LATERAL SUPPORTING STRUCTURES: Intact iliotibial band, lateral capsular ligament, fibular collateral ligament, popliteus, and biceps femoris tendons EXTENSOR MECHANISM: Intact. Increased tibial tubercle trochlear groove distance measuring 2.2 cm. JOINT SPACE/FLUID: No joint effusion. BONES: No acute fracture, osseous contusion, or aggressive focal osseous lesion MUSCLES: Normal in signal intensity and morphology NEUROVASCULAR: Unremarkable OTHER: None IMPRESSION: 1. Mucoid degeneration versus sequelae of prior injury of the anterior cruciate ligament. 2. Trace possible subchondral edema of the mesial aspect of the medial femoral condyle. 3. Increased tibial tubercle trochlear groove distance measuring 2.2 cm.
== END 2025-05-26 23:59 | disposition home or self-care (01) ==
LOC: MRI02 09:04
PROVIDERS: ATTEND Family Medicine
DX: M17.12 Unilateral primary osteoarthritis, left knee (principal)
CPT/HCPCS: 73721